=== PATIENT | female | born 1945 | race Caucasian/White ===

== ENCOUNTER 2016-12-03 20:07 | Emergency (ER) | payer MEDICAID ==
[~2016-12-03] VITALS: Ht 170.2 cm; Wt 89.0 kg
[2016-12-03 20:12] VITALS: Ht 170.2 cm; Wt 89.0 kg
[2016-12-03] MEDS ORDERED: SOD CHLORIDE 0.9% 500 ML IV STA (20:46)
--- NOTE | 2016-12-03 21:11 | ERD ---
ER Documentation Chief Complaint Date/Time DATE: 12/03/16 TIME: 21:09 Chief Complaint BACK PAIN, DYSURIA AND FOUL SMELLING URINE X2 DAYS HPI 75-year-old female presents here in emergency department for complaints of bilateral flank pain, dysuria all swelling urine for 2 days. Patient's complaining of pain upon urination burning pain 6/10, accompanied with bilateral flank pain. Patient had subjective fever home. Patient was not able to check temperature. Patient denies any nausea vomiting. Patient denies any diarrhea or constipation. Patient did not take any medications of symptoms. ROS All systems reviewed and are negative except as per history of present illness. Medications Home Meds Reported Medications [none] Unknown Strength No Conflict Check 12/03/16 Allergies Allergies: Coded Allergies: No Known Allergy (Unverified , 12/03/16) PMhx/Soc Medical and Surgical Hx: pt denies Medical Hx, pt denies Surgical Hx Hx Alcohol Use: No Hx Substance Use: No Hx Tobacco Use: No Smoking Status: Never smoker FmHx Family History: No coronary disease, No diabetes, No other Physical Exam Vitals Vital Signs Date Time Temp Pulse Resp B/P Pulse Ox O2 Delivery O2 Flow Rate FiO2 12/03/16 20:12 98.6 64 18 114/55 99 Physical Exam GENERAL: The patient is well developed and appropriate for usual state of health, in no apparent distress. CHEST: Clear to auscultation bilaterally. There are no rales, wheezes or rhonchi. HEART: Regular rate and rhythm. No murmurs, clicks, rubs or gallops. No S3 or S4. ABDOMEN: Soft, nontender and nondistended. Good bowel sounds. No rebound or guarding. No gross peritonitis. No gross organomegaly or masses. No Hylton sign or McBurney point tenderness. BACK: No midline or flank tenderness. EXTREMITIES: Equal pulses bilaterally. There is no peripheral clubbing, cyanosis or edema. No focal swelling or erythema. Full range of motion. Grossly neurovascularly intact. NEURO: Alert and oriented. Cranial nerves 2-12 intact. Motor strength in all 4 extremities with 5/5 strength. Sensation grossly intact. Normal speech and gait. SKIN: There is no apparent rash or petechia. The skin is warm and dry. HEMATOLOGIC AND LYMPHATIC: There is no evidence of excessive bruising or lymphedema. No gross cervical, axillary, or inguinal lymphadenopathy. Result Diagram: 8/21/17 2130 8/21/17 2130 Results 24 hrs Laboratory Tests Test 12/03/16 21:30 12/03/16 22:25 White Blood Count 6.310^3/ul Red Blood Count 4.8810^6/ul Hemoglobin 12.8g/dl Hematocrit 40.8% Mean Corpuscular Volume 83.6fl Mean Corpuscular Hemoglobin 26.2pg Mean Corpuscular Hemoglobin Concent 31.4g/dl Red Cell Distribution Width 14.3% Platelet Count 86314^3/UL Mean Platelet Volume 11.0fl Neutrophils % 42.2% Lymphocytes % 43.4% Monocytes % 10.9% Eosinophils % 2.1% Basophils % 0.6% Nucleated Red Blood Cells % 0.0/100WBC Neutrophils # (Manual) 310^3/ul Lymphocytes # 2.810^3/ul Monocytes # 0.710^3/ul Eosinophils # 0.110^3/ul Basophils # 0.010^3/ul Nucleated Red Blood Cells # 0.010^3/ul Sodium Level 138mmol/L Potassium Level 3.6mmol/L Chloride Level 97mmol/L Carbon Dioxide Level 30mmol/L Anion Gap 15 Blood Urea Nitrogen 26mg/dl Creatinine 1.59mg/dl Glucose Level 116mg/dl Calcium Level 8.5mg/dl Total Bilirubin 0.3mg/dl Direct Bilirubin 0.00mg/dl Indirect Bilirubin 0.3mg/dl Aspartate Amino Transf (AST/SGOT) 115IU/L Alanine Aminotransferase (ALT/SGPT) 82IU/L Alkaline Phosphatase 86IU/L Total Protein 7.1g/dl Albumin 4.2g/dl Globulin 2.90g/dl Albumin/Globulin Ratio 1.44 Lipase 336U/L Urine Color YELLOW Urine Clarity CLEAR Urine pH 6.0 Urine Specific [place] 1.004 Urine Ketones NEGATIVEmg/dL Urine Nitrite POSITIVEmg/dL Urine Bilirubin NEGATIVEmg/dL Urine Urobilinogen NEGATIVEmg/dL Urine Leukocyte Esterase 1+[place]/ul Urine Microscopic RBC 1/HPF Urine Microscopic WBC 1/HPF Urine Hemoglobin NEGATIVEmg/dL Urine Glucose NEGATIVEmg/dL Urine Total Protein NEGATIVEmg/dl Current Medications Medications (Trade) Dose Ordered Sig/Zhanna Route PRN Reason Start Time Stop Time Status Last Admin Dose Admin Sodium Chloride (NS) 500 ml @ 500 mls/hr Q1H STAT IV 12/03/16 20:46 12/03/16 21:45 DC 12/03/16 21:23 Morphine Sulfate (morphine) 2 mg ONCE ONCE IV 12/03/16 22:00 12/03/16 22:02 DC 12/03/16 22:19 Ondansetron HCl (Zofran Inj) 4 mg ONCE STAT IV 12/03/16 21:58 12/03/16 22:02 DC 12/03/16 22:17 Normal saline IV bolus was given here in emergency department for rehydration, patient tolerated IV fluids.Patient was given medication for pain here in emergency department, after treatment, patient verbalized feeling much better. Patient's pain is improved. PROCEDURE: CT Abdomen and pelvis without contrast. CLINICAL INDICATION: Abdominal pain. TECHNIQUE: CT scan of the abdomen and pelvis was performed on a multi- detector high-resolution CT scanner. Contiguous axial images were obtained from the lung bases to the ischial tuberosities without intravenous contrast. Coronal and sagittal reformatted images were also obtained. Images were reviewed on the PACS workstation. One or more of the following dose reduction techniques were used: - Automated exposure control. - Adjustment of the mA and/or kV according to patient size. - Use of iterative reconstruction technique. Exam CTD/vol = 19.95 mGy. Total exam DLP = 1209.43 mGy-cm. COMPARISON: None. FINDINGS: Evaluation of the lung bases demonstrates mild bibasilar atelectasis. The heart is mildly enlarged. Abdomen: The liver is normal in size. There is no focal mass or dilatation of the biliary tree. The gallbladder is not distended. The spleen, pancreas and bilateral adrenal glands are within normal limits. Bilateral kidneys are normal in size with multiple cysts. There is no radiopaque renal or ureteral calculus identified. There is no hydronephrosis or hydroureter. There is no retroperitoneal adenopathy. The abdominal aorta is of normal caliber with scattered atherosclerotic calcifications. There is no abnormal bowel wall thickening or distension. There is no bowel obstruction or free air. A normal appendix is identified. There is sigmoid diverticulosis without evidence of diverticulitis. There is no ascites. Pelvis: The bladder is unremarkable. There is a heterogeneous uterine fibroid measuring 6.8 x 6.0 cm. A cervical pessary ring is present. There is no significant pelvic adenopathy or free fluid. Evaluation of the osseous structures demonstrates no suspicious lytic or blastic lesion. IMPRESSION: No acute abnormality identified within the abdomen and pelvis. Mild bibasilar atelectasis. Mild cardiomegaly. Bilateral renal cysts. Vascular calcifications reflective of atherosclerosis. Sigmoid diverticulosis without evidence of diverticulitis. Uterine fibroid. Cervical pessary ring. .Lio Denise MD, Date Time Electronically viewed and signed by .Lio Denise MD, MD on 12/03/2016 22:57 .T/ CC: NASEEM SIMMONS [employer] improved. Procedures/MDM Medical Decision Making: Patient symptoms was likely consistent with urinary tract infection and possible early pyelonephritis. Back pain can be from musculoskeletal pain, no CVA tenderness noted. Patient does not have any symptoms of any sepsis, no fever, no leukocytosis, no bandemia. Patient does not have any risk factors except for age, patient has a family member that takes care of her, outpatient management is appropriate at this time with strict return to the ER precautions. There is low suspicion for abdominal emergencies at this time. Patients abdominal exam is normal at this time. Patients radiology exam does not show any abdominal emergencies at this time. There is low suspicion for appendicitis, cholecystitis, abdominal aortic aneurysms or peritonitis at this time. There is low suspicion for sepsis. Patient appears well and is hemodynamically stable. Disposition: Home. Condition: Stable Prescription Keflex, Pyridium, [place] Instructions: Patient is advised to take medications as prescribed. Patient is advised to rest, increase fluid intake and do brat diet for next 1-2 days and progress as tolerated. Patient is advised that if symptoms are worse, severe abdominal pain, uncontrolled vomiting, high fever, severe flank pain, worst signs and symptoms, to return to the emergency department immediately. Otherwise, patient can follow up with primary care doctor in 5-7 days. Departure Diagnosis: Primary Impression: UTI (urinary tract infection) Urinary tract infection type: acute cystitis Hematuria presence: without hematuria Qualified Code: N30.00 - Acute cystitis without hematuria Additional Impression: Back pain Back pain location: low back pain Chronicity: acute Back pain laterality: bilateral Sciatica presence: without sciatica Qualified Code: M54.5 - Acute bilateral low back pain without sciatica Condition: Stable Patient Instructions: Back Pain (Acute Or Chronic), Understanding Urinary Tract Infections (UTIs) Additional Instructions: Patient is advised to take medications as prescribed. Patient is advised to rest, increase fluid intake and do brat diet for next 1-2 days and progress as tolerated. Patient is advised that if symptoms are worse, severe abdominal pain , uncontrolled vomiting, high fever, severe flank pain, worst signs and symptoms , to return to the emergency department immediately. Otherwise, patient can follow up with primary care doctor in 5-7 days. NASEEM SIMMONS NP Dec 03, 2016 21:11
[2016-12-03 21:56] LABS: BASOPHILS % 0.6 % (0.0-2.0); EOSINOPHILS # 0.1 10^3/ul (0.0-0.5); EOSINOPHILS % 2.1 % (0.0-7.0); HEMATOCRIT 40.8 % (37.0-47.0); HEMOGLOBIN 12.8 g/dl (12.0-16.0); LYMPHOCYTES # 2.8 10^3/ul (0.8-2.9); LYMPHOCYTES % 43.4 % (15.0-51.0); MEAN CORPUSCULAR HEMOGLOBIN 26.2 pg (29.0-33.0); MEAN CORPUSCULAR HGB CONC 31.4 g/dl (32.0-37.0); MEAN CORPUSCULAR VOLUME 83.6 fl (82.0-101.0); MONOCYTE # 0.7 10^3/ul (0.3-0.9); MONOCYTES % 10.9 % (0.0-11.0); NEUTROPHILS % 42.2 % (39.0-77.0); PLATELET COUNT 181 10^3/UL (140-415); RED BLOOD COUNT 4.88 10^6/ul (4.20-5.40); RED CELL DISTRIBUTION WIDTH 14.3 % (11.5-14.5); WHITE BLOOD COUNT 6.3 10^3/ul (4.8-10.8)
[2016-12-03] MEDS ORDERED: ONDANSETRON 4 MG INJ IV STA (21:58)
[2016-12-03] MEDS ORDERED: morphine 2 MG INJ IV ONE (22:00)
[2016-12-03 22:17] LABS: ALBUMIN 4.2 g/dl (3.3-4.9); ALBUMIN/GLOBULIN RATIO 1.44; BILIRUBIN,INDIRECT 0.3 mg/dl (0-1.1); BILIRUBIN,TOTAL 0.3 mg/dl (0.2-1.3); CALCIUM 8.5 mg/dl (8.4-10.2); CREATININE 1.59 mg/dl (0.44-1.00); POTASSIUM 3.6 mmol/L (3.5-5.1); TOTAL PROTEIN 7.1 g/dl (6.1-8.1)
--- NOTE | 2016-12-03 22:57 | RADRPT ---
PROCEDURE: CT Abdomen and pelvis without contrast. CLINICAL INDICATION: Abdominal pain. TECHNIQUE: CT scan of the abdomen and pelvis was performed on a multi-detector high-resolution CT scanner. Contiguous axial images were obtained from the lung bases to the ischial tuberosities wit hout intravenous contrast. Coronal and sagittal reformatted images were also obtained. Images were reviewed on the PACS workstation. One or more of the following dose reduction techniques were used: - Automated exposure control. - Adjustment of the mA and/or kV according to patient size. - Use of iterative reconstruction technique. Exam CTD/vol = 19.95 mGy. Total exam DLP = 1209.43 mGy-cm. COMPARISON: None. FINDINGS: Evaluation of the lung bases demonstrates mild bibasilar atelectasis. The heart is mildly enlarged. Abdomen: The liver is normal in size. There is no focal mass or dilatation of the biliary tree. T he gallbladder is not distended. The spleen, pancreas and bilateral adrenal glands are within donnie l limits. Bilateral kidneys are normal in size with multiple cysts. There is no radiopaque renal o r ureteral calculus identified. There is no hydronephrosis or hydroureter. There is no retroperito cierra adenopathy. The abdominal aorta is of normal caliber with scattered atherosclerotic calcificat ions. There is no abnormal bowel wall thickening or distension. There is no bowel obstruction or free air . A normal appendix is identified. There is sigmoid diverticulosis without evidence of diverticuli tis. There is no ascites. Pelvis: The bladder is unremarkable. There is a heterogeneous uterine fibroid measuring 6.8 x 6.0 cm. A cervical pessary ring is present. There is no significant pelvic adenopathy or free fluid. Evaluation of the osseous structures demonstrates no suspicious lytic or blastic lesion. IMPRESSION: No acute abnormality identified within the abdomen and pelvis. Mild bibasilar atelectasis. Mild cardiomegaly. Bilateral renal cysts. Vascular calcifications reflective of atherosclerosis. Sigmoid diverticulosis without evidence of diverticulitis. Uterine fibroid. Cervical pessary ring. .Lio Denise MD, MD Date Time Electronically viewed and signed by .Lio Denise MD, MD on 12/03/2016:57 .T/
[2016-12-03 23:16] LABS: ADD UMIC YES; UR ASCORBIC ACID NEGATIVE (NEGATIVE); UR BILIRUBIN (Dip) NEGATIVE (NEGATIVE); UR BLOOD (Dip) NEGATIVE (NEGATIVE); UR CLARITY CLEAR (CLEAR); UR COLOR YELLOW (YELLOW); UR GLUCOSE (Dip) NEGATIVE (NEGATIVE); UR KETONES (Dip) NEGATIVE (NEGATIVE); UR LEUKOCYTE ESTERASE (Dip) 1+ Leu/ul (NEGATIVE); UR NITRITE (Dip) POSITIVE (NEGATIVE); UR RBC 1 /HPF (0-5); UR SPECIFIC GRAVITY (Dip) 1.004 (1.003-1.030); UR TOTAL PROTEIN (Dip) NEGATIVE (NEGATIVE); UR UROBILINOGEN (Dip) NEGATIVE (NEGATIVE)
[2016-12-03] MEDS ORDERED: HYDR-906 PO (23:41)
[2016-12-03] MEDS ORDERED: PHEN-538 PO (23:41)
[2016-12-03] MEDS ORDERED: CEPH-443 PO (23:41)
[2016-12-04] MEDS ORDERED: CEFTRIAXONE 1 GM/50 ML (PMX) 50 ML IVPB ONE
== END 2016-12-04 00:15 | disposition home or self-care (01) ==
LOC: FTE 20:07
DX: N30.00 Acute cystitis without hematuria (principal); M54.5 Low back pain
CPT/HCPCS: 36415; 74176; 80053; 81001; 83690; 85025; 96361; 96374; 96375; J0696; J2270; J2405; J7040; Z7502